=== PATIENT | female | born 1995 | race Two or more races ===

== ENCOUNTER 2018-11-30 22:50 | Emergency (ER) | payer OTHER ==
[~2018-11-30] VITALS: Ht 152.4 cm; Wt 53.5 kg
[2018-11-30 22:56] VITALS: BP 113/71
[2018-11-30] MEDS ORDERED: KETOROLAC TROMETHAMINE INJ 60 MG/2 ML VIAL IM ONE ×2 (23:25→23:30)
== END 2018-11-30 23:34 | disposition home or self-care (01) ==
LOC: ER 22:54
DX: S00.03XA Contusion of scalp, initial encounter (principal); R51 Headache; F10.10 Alcohol abuse, uncomplicated; F12.10 Cannabis abuse, uncomplicated; Y90.9 Presence of alcohol in blood, level not specified; W01.198A Fall on same level from slipping, tripping and stumbling with subsequent striking against other object, initial encounter; Y93.89 Activity, other specified; Y92.89 Other specified places as the place of occurrence of the external cause; Y99.8 Other external cause status
CPT/HCPCS: 96372; 99283; J1885